=== PATIENT | male | born 1970 | race African-American/Black ===

== ENCOUNTER 2017-09-30 18:16 | Emergency (ER) | payer SELFPAY ==
[~2017-09-30] VITALS: Ht 175.3 cm; Wt 93.2 kg
[~2017-09-30 18:16] MED LIST: LISI-170 PO; METF850T2 PO
[2017-09-30 19:00] LABS: HEMATOCRIT 44.2 % (39.2-51.8); HEMOGLOBIN 15.1 g/dL (13.7-18.0)
[2017-09-30 19:10] LABS: BLOOD UREA NITROGEN 11 mg/dL (7-18)
[2017-09-30 19:11] LABS: PATH.CAST-FLAG NOT PRESENT; SPERM-FLAG NOT PRESENT; SRC-FLAG NOT PRESENT; XTAL-FLAG NOT PRESENT; YLC-FLAG NOT PRESENT
[2017-09-30 19:24] LABS: DIFF TOTAL CELLS COUNTED 100 CELL DIFF
[2017-09-30 19:28] LABS: VERIFY COUNTS? YES
[2017-09-30] MEDS ORDERED: OMNIPAQUE 350 MG/ML, 100ML BOTTLE ONE (19:40)
[2017-09-30 20:37] VITALS: BP 132/78
== END 2017-09-30 20:40 | disposition home or self-care (01) ==
LOC: ED 19:03
DX: R31.0 Gross hematuria (principal); I10 Essential (primary) hypertension; E11.40 Type 2 diabetes mellitus with diabetic neuropathy, unspecified
CPT/HCPCS: 36415; 74177; 80048; 81001; 82040; 85025; 99285; Q9967

== ENCOUNTER 2017-11-17 21:15 | Emergency (ER) | payer OTHER ==
[~2017-11-17] VITALS: Ht 175.3 cm; Wt 93.7 kg
[2017-11-17 21:17] VITALS: BP 162/93
== END 2017-11-18 00:31 | disposition home or self-care (01) ==
LOC: ED 23:59
DX: J06.9 Acute upper respiratory infection, unspecified (principal); E11.65 Type 2 diabetes mellitus with hyperglycemia; I10 Essential (primary) hypertension
CPT/HCPCS: 71046; 99284

== ENCOUNTER 2018-11-20 23:29 | Emergency (ER) | payer OTHER ==
[~2018-11-20] VITALS: Ht 175.3 cm; Wt 93.4 kg
[~2018-11-20 23:29] MED LIST changes: +METF850T10 PO; -METF850T2 PO
[2018-11-20 23:30] VITALS: BP 170/109
[2018-11-20] MEDS ORDERED: HYDROcodone/APAP 5/325 TABLET ONE (23:46)
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
[2018-11-21] MEDS ORDERED: HYDROcodone/APAP 5/325 TABLET PO ONE
--- NOTE | 2018-11-21 00:29 | NUR ---
PT IN NAD AT THIS TIME AWAITING X RAYS
== END 2018-11-21 01:22 | disposition home or self-care (01) ==
LOC: ED 23:44
DX: S40.012A Contusion of left shoulder, initial encounter (principal); I10 Essential (primary) hypertension; E11.9 Type 2 diabetes mellitus without complications; W01.0XXA Fall on same level from slipping, tripping and stumbling without subsequent striking against object, initial encounter; Y93.89 Activity, other specified; Y92.410 Unspecified street and highway as the place of occurrence of the external cause; Y99.8 Other external cause status
CPT/HCPCS: 99283